=== PATIENT | male | born 1965 | race Caucasian/White ===

== ENCOUNTER 2021-02-18 12:47 | Emergency (ER) | payer SELFPAY ==
[~2021-02-18] VITALS: Ht 182.9 cm; Wt 95.3 kg
[2021-02-18] MEDS ORDERED: LIDOCAINE 5% PATCH TD ONE ×2 (13:00→13:22)
[2021-02-18] MEDS ORDERED: BACLOFEN 10 MG TABLET PO ONE (13:00)
[2021-02-18] MEDS ORDERED: HYDROCODONE/APAP 5-325MG TABLET PO ONE (13:00)
--- NOTE | 2021-02-18 13:19 | NUR ---
PT IS IN ROOM #2B. DR CORONADO EVALUATED THE PT.
[2021-02-18] MEDS ORDERED: BACLOFEN 10 MG TABLET ONE (13:20)
[2021-02-18] MEDS ORDERED: HYDROCODONE/APAP 5-325MG TABLET ONE (13:21)
[2021-02-18] MEDS ORDERED: ACET-2154 PO (13:50)
[2021-02-18] MEDS ORDERED: BACL10TA PO (13:50)
[2021-02-18] MEDS ORDERED: LIDO30AD10 TD (13:50)
--- NOTE | 2021-02-18 13:59 | NUR ---
PT WAS D/C'd TO HOME. D/C INSTRUCTIONS GIVEN TO THE PT BY DR CORONADO.
[2021-02-18 14:04] VITALS: BP 111/62
== END 2021-02-18 14:06 | disposition home or self-care (01) ==
LOC: ER 12:47
DX: S13.4XXA Sprain of ligaments of cervical spine, initial encounter (principal); S29.012A Strain of muscle and tendon of back wall of thorax, initial encounter; S39.012A Strain of muscle, fascia and tendon of lower back, initial encounter; S20.212A Contusion of left front wall of thorax, initial encounter; V43.52XA Car driver injured in collision with other type car in traffic accident, initial encounter; Y92.414 Local residential or business street as the place of occurrence of the external cause; R00.0 Tachycardia, unspecified; I10 Essential (primary) hypertension; E11.9 Type 2 diabetes mellitus without complications
CPT/HCPCS: 71045; 93005